=== PATIENT | male | born 1980 | race Two or more races ===

== ENCOUNTER 2019-07-08 05:23 | Emergency (ER) | payer SELFPAY ==
[~2019-07-08] VITALS: Ht 182.9 cm; Wt 81.6 kg
[2019-07-08] MEDS ORDERED: HYDROcodone-ACET 5/325MG TAB PO ONE (09:30)
[2019-07-08 12:34] LABS: Urine Bacteria NONE SEEN /hpf (None Seen); Urine Blood TRACE /uL (Negative); Urine Specific Gravity 1.025 (1.001-1.035); Urine WBC <1 /hpf (0 - 3)
[2019-07-08 13:44] VITALS: BP 121/72
== END 2019-07-08 13:50 | disposition home or self-care (01) ==
LOC: ER 05:23 → EDBD 05:23 → ER 13:50
DX: S02.40FA Zygomatic fracture, left side, initial encounter for closed fracture (principal); S02.2XXA Fracture of nasal bones, initial encounter for closed fracture; S82.242A Displaced spiral fracture of shaft of left tibia, initial encounter for closed fracture; S00.12XA Contusion of left eyelid and periocular area, initial encounter; R81 Glycosuria; F17.210 Nicotine dependence, cigarettes, uncomplicated; Y08.89XA Assault by other specified means, initial encounter; Y93.89 Activity, other specified; Y99.8 Other external cause status; Y92.89 Other specified places as the place of occurrence of the external cause
CPT/HCPCS: 29505; 70450; 70486; 73590; 81001; 82962

== ENCOUNTER 2019-11-26 10:12 | Inpatient (IN) | payer MEDICAID, OTHER ==
[~2019-11-26] VITALS: Ht 175.3 cm; Wt 84.9 kg
[2019-11-26] MEDS ORDERED: ONDANSETRON ODT 4 MG TAB PO ONE (10:45)
[2019-11-26] MEDS ORDERED: ACETAMINOPHEN 325 MG TAB PO ONE (11:15)
[2019-11-26] MEDS ORDERED: ASCORBIC ACID 500 MG TAB PO ONE (11:30)
[2019-11-26] MEDS ORDERED: ZINC SULFATE 220mg CAP or TAB PO ONE (11:30)
[2019-11-26] MEDS ORDERED: methylPREDNISolone SOD SUCC 125 MG/2 ML VL IV ONE (11:30)
[2019-11-26] MEDS ORDERED: ENOXAPARIN SOD 100 MG/1 ML SYRINGE SC ONE (11:30)
[2019-11-26] MEDS ORDERED: AZITHROMYCIN 500MG/ 250ML 250 ML IV ONE (11:30)
[2019-11-26] MEDS ORDERED: hydrOXYchloroQUINE SULFATE 200 MG TAB PO ONE (11:30)
[2019-11-26 13:17] LABS: Basophils # (auto) 0 10 ^3/uL (0-0.2); Basophils % (auto) 0.5 % (0.0-2.0); Eosinophils # (auto) 0 10 ^3/uL (0-0.8); Hematocrit 46.6 % (41.0-53.0); Hemoglobin 15.3 g/dL (13.5-17.5); Lymphocytes # (auto) 1.1 10 ^3/uL (0.4-5.4); Lymphocytes % (auto) 20.6 % (10.0-50.0); Mean Corpuscular Hgb Conc. 32.9 g/dL (32.0-36.0); Mean Corpuscular Volume 88.1 fL (80.0-100.0); Monocytes # (auto) 0.8 10 ^3/uL (0-1.3); Monocytes % (auto) 14.6 % (0.0-12.0); Neutrophils # (auto) 3.5 10 ^3/uL (1.6-8.6); Neutrophils % (auto) 64.3 % (37.0-80.0); Nucleated Red Blood Cells % 0.1 %; Platelet Count (auto) 175 10^3/uL (140-450); Red Blood Cells 5.29 10^6/uL (4.5-5.90); Red Cell Distribution Width 13.3 % (11.8-14.3); White Blood Cell 5.5 10^3/uL (4.4-10.8)
[2019-11-26 13:36] LABS: Albumin 2.9 g/dL (3.4-5.0); Calcium 8.3 mg/dL (8.5-10.1)
[2019-11-26 13:43] LABS: BUN/Creatinine Ratio 16.9; Bilirubin, Total 0.7 mg/dL (0.2-1.0); CRP High Sensitivity 8.77 mg/dL (< 0.3); Total Protein 7.6 g/dL (6.4-8.2)
[2019-11-26] MEDS ORDERED: SODIUM CHLORIDE 0.9% 1,000 ML IV SCH (14:25)
[2019-11-26] MEDS ORDERED: NITROGLYCERIN 0.4 MG SL TAB SL PRN ×2 (14:30→20:15)
[2019-11-26] MEDS ORDERED: MORPHINE SULF INJ 2 MG/ML SYRINGE 1ML IV PRN ×3 (14:30→20:15)
[2019-11-26] MEDS ORDERED: ACETAMINOPHEN 500 MG TAB PO PRN (14:30)
[2019-11-26] MEDS ORDERED: NAP500T PO (17:10)
[2019-11-26] MEDS ORDERED: IBUP200T76 PO (17:10)
[2019-11-26] MEDS ORDERED: DexAMETHasone SOD PHOS 4 MG/1ML SDV INJ IV ONE (20:15)
[2019-11-26] MEDS ORDERED: FUROSEMIDE 20 MG/2 ML VIAL IV ONE (20:15)
[2019-11-26] MEDS ORDERED: ONDANSETRON HCL 4 MG/2 ML VIAL IV PRN (20:15)
[2019-11-26] MEDS ORDERED: ACETAMINOPHEN 325 MG TAB PO PRN (20:15)
[2019-11-26] MEDS ORDERED: HYDROcodone-ACET 5/325MG TAB PO PRN (20:15)
[2019-11-26] MEDS ORDERED: ALUM & MAG HYDROX-SIMETH LIQ(MAALOX) 30 ML PO PRN (20:15)
[2019-11-26] MEDS ORDERED: DEXTROSE (50%) 50ML SYRG IV PRN (20:15)
[2019-11-26] MEDS ORDERED: DOCUSATE SOD 100 MG CAP PO PRN (20:15)
[2019-11-26 20:49] VITALS: BP 109/70
[2019-11-26 21:22] LABS: Cholesterol 165 mg/dL (< 200); Triglycerides 119 mg/dL (< 150)
[2019-11-26 21:26] LABS: HDL Cholesterol 31 mg/dL (40-59); LDL Cholesterol 114 mg/dL (< 100)
[2019-11-26] MEDS: DOXYCYCLINE 100MG/250ML 250 ML IV SCH (21:36)
[2019-11-26] MEDS ORDERED: InsuLIN REG 1unit/0.01ml Soln (100units/ml) SC SCH (22:00)
[2019-11-26] MEDS: ALBUTEROL SULF HFA 90MCG INH 200DOSE IN SCH (22:00)
[2019-11-26 22:12] VITALS: BP 123/75
[2019-11-26] MEDS: ACCU-CHEK COMFORT CURVE STRIP VI SCH (22:42)
[2019-11-27 00:39] VITALS: BP 123/75
[2019-11-27] MEDS ORDERED: PNEUMOCOCCAL VACC POLYS 25 MCG/0.5 ML VIAL IM ONE (02:15)
[2019-11-27 05:19] VITALS: BP 120/75
[2019-11-27] MEDS: FUROSEMIDE 20 MG/2 ML VIAL IV SCH ×2 (06:22→17:32)
[2019-11-27] MEDS: ACCU-CHEK COMFORT CURVE STRIP VI SCH ×2 (06:55→18:26)
[2019-11-27] MEDS ORDERED: InsuLIN REG 1unit/0.01ml Soln (100units/ml) SC SCH (07:00)
[2019-11-27] MEDS ORDERED: InsuLIN REG 1unit/0.01ml Soln (100units/ml) SC ONE (08:15)
[2019-11-27] MEDS ORDERED: INSULIN LANTUS (GLARGINE) 1 /0.01ml (100units/ml) SC ONE (08:15)
[2019-11-27 08:22] LABS: Basophils # (auto) 0 10 ^3/uL (0-0.2); Basophils % (auto) 0.2 % (0.0-2.0); Eosinophils # (auto) 0 10 ^3/uL (0-0.8); Hematocrit 47.4 % (41.0-53.0); Hemoglobin 15.5 g/dL (13.5-17.5); Lymphocytes # (auto) 0.8 10 ^3/uL (0.4-5.4); Lymphocytes % (auto) 19.3 % (10.0-50.0); Mean Corpuscular Hemoglobin 28.7 pg (28.0-32.0); Mean Corpuscular Hgb Conc. 32.7 g/dL (32.0-36.0); Mean Corpuscular Volume 87.6 fL (80.0-100.0); Monocytes # (auto) 0.4 10 ^3/uL (0-1.3); Monocytes % (auto) 10.8 % (0.0-12.0); Neutrophils # (auto) 2.9 10 ^3/uL (1.6-8.6); Neutrophils % (auto) 69.7 % (37.0-80.0); Nucleated Red Blood Cells % 0.1 %; Platelet Count (auto) 215 10^3/uL (140-450); Red Blood Cells 5.41 10^6/uL (4.5-5.90); Red Cell Distribution Width 13.3 % (11.8-14.3); White Blood Cell 4.2 10^3/uL (4.4-10.8)
[2019-11-27 08:37] LABS: INR 1.02 (0.9-1.15)
[2019-11-27 08:56] LABS: Albumin 2.8 g/dL (3.4-5.0); BUN/Creatinine Ratio 25.3; Calcium 7.9 mg/dL (8.5-10.1); Magnesium 2.5 mg/dL (1.6-2.6); Potassium 3.9 mmol/L (3.5-5.1)
[2019-11-27 08:59] LABS: Bilirubin, Total 0.5 mg/dL (0.2-1.0); Total Protein 7.7 g/dL (6.4-8.2)
[2019-11-27 09:00] VITALS: BP 116/75
[2019-11-27] MEDS: ALBUTEROL SULF HFA 90MCG INH 200DOSE IN SCH ×2 (09:25→15:12)
[2019-11-27 09:26] LABS: Phosphorus 3.6 mg/dL (2.5-4.90)
[2019-11-27 09:59] LABS: CRP High Sensitivity 8.87 mg/dL (< 0.3)
[2019-11-27] MEDS ORDERED: DexAMETHasone SOD PHOS 4 MG/1ML SDV INJ IV SCH (10:00)
[2019-11-27] MEDS: ZINC SULFATE 220mg CAP or TAB PO SCH (10:28)
[2019-11-27] MEDS: DexAMETHasone SOD PHOS 10MG/1ML VIAL INJ IV SCH (10:28)
[2019-11-27] MEDS: DOXYCYCLINE 100MG/250ML 250 ML IV SCH ×2 (10:29→22:00)
[2019-11-27] MEDS: CHOLECALCIFEROL (VITD3) 1,000UNIT=25mCg TAB PO SCH (10:29)
[2019-11-27] MEDS: ASCORBIC ACID 1,000 MG TAB PO SCH (10:29)
[2019-11-27] MEDS: ENOXAPARIN SOD 40 MG/0.4 ML SYRINGE SC SCH (10:29)
[2019-11-27] MEDS ORDERED: POTASSIUM EFFERVESENT TAB 25 MEQ PO ONE (12:00)
[2019-11-27 13:00] VITALS: BP 122/78
[2019-11-27] MEDS ORDERED: InsuLIN REG 1unit/0.01ml Soln (100units/ml) IV ONE (14:00)
[2019-11-27] MEDS ORDERED: DEXTROSE (50%) 50ML SYRG IV PRN (14:00)
[2019-11-27 17:00] VITALS: BP 118/76
[2019-11-27] MEDS: InsuLIN REG 1unit/0.01ml Soln (100units/ml) SC SCH (17:32)
[2019-11-27 22:00] VITALS: BP 119/71
[2019-11-27] MEDS: INSULIN LANTUS (GLARGINE) 1 /0.01ml (100units/ml) SC SCH (22:01)
[2019-11-28] MEDS: ACCU-CHEK COMFORT CURVE STRIP VI SCH ×4 (00:34→18:04)
[2019-11-28] MEDS: InsuLIN REG 1unit/0.01ml Soln (100units/ml) SC SCH ×4 (00:35→18:05)
[2019-11-28] MEDS: FUROSEMIDE 20 MG/2 ML VIAL IV SCH ×2 (06:03→18:08)
[2019-11-28 08:54] VITALS: BP 100/61
[2019-11-28] MEDS ORDERED: cefTRIAXone 1GM/50ML D5W 50 ML IV ONE (09:15)
[2019-11-28] MEDS: INSULIN LANTUS (GLARGINE) 1 /0.01ml (100units/ml) SC SCH (10:00)
[2019-11-28] MEDS: ALBUTEROL SULF HFA 90MCG INH 200DOSE IN SCH ×4 (10:13→22:34)
[2019-11-28] MEDS: POTASSIUM EFFERVESENT TAB 25 MEQ PO SCH (10:14)
[2019-11-28] MEDS: DOXYCYCLINE 100MG/250ML 250 ML IV SCH (10:15)
[2019-11-28] MEDS: ENOXAPARIN SOD 40 MG/0.4 ML SYRINGE SC SCH (10:16)
[2019-11-28] MEDS: ZINC SULFATE 220mg CAP or TAB PO SCH (10:16)
[2019-11-28] MEDS: CHOLECALCIFEROL (VITD3) 1,000UNIT=25mCg TAB PO SCH (10:16)
[2019-11-28] MEDS: ASCORBIC ACID 1,000 MG TAB PO SCH (10:16)
[2019-11-28] MEDS: DexAMETHasone SOD PHOS 10MG/1ML VIAL INJ IV SCH (10:17)
[2019-11-28 13:00] VITALS: BP 111/75
[2019-11-28 17:00] VITALS: BP 112/70
[2019-11-28] MEDS: cefTRIAXone 1GM/50ML D5W 50 ML IV SCH (21:24)
[2019-11-28 22:00] VITALS: BP 116/70
[2019-11-29] MEDS: INSULIN LANTUS (GLARGINE) 1 /0.01ml (100units/ml) SC SCH ×3 (00:01→23:37)
[2019-11-29] MEDS: InsuLIN REG 1unit/0.01ml Soln (100units/ml) SC SCH ×5 (00:02→23:38)
[2019-11-29] MEDS: DOXYCYCLINE 100MG/250ML 250 ML IV SCH ×3 (00:14→23:18)
[2019-11-29] MEDS: ENOXAPARIN SOD 40 MG/0.4 ML SYRINGE SC SCH ×3 (00:15→23:18)
[2019-11-29] MEDS: ACCU-CHEK COMFORT CURVE STRIP VI SCH ×5 (00:15→23:19)
[2019-11-29 05:00] VITALS: BP 108/70
[2019-11-29] MEDS: FUROSEMIDE 20 MG/2 ML VIAL IV SCH ×2 (06:10→18:25)
[2019-11-29 06:33] LABS: Potassium 3.4 mmol/L (3.5-5.1)
[2019-11-29 06:37] LABS: BUN/Creatinine Ratio 29.5; Calcium 8.6 mg/dL (8.5-10.1)
[2019-11-29 07:30] VITALS: BP 90/64
[2019-11-29] MEDS: ALBUTEROL SULF HFA 90MCG INH 200DOSE IN SCH ×2 (07:56→23:19)
[2019-11-29] MEDS: cefTRIAXone 1GM/50ML D5W 50 ML IV SCH ×2 (09:56→20:55)
[2019-11-29] MEDS: ZINC SULFATE 220mg CAP or TAB PO SCH (09:59)
[2019-11-29] MEDS: POTASSIUM EFFERVESENT TAB 25 MEQ PO SCH (09:59)
[2019-11-29] MEDS: ASCORBIC ACID 1,000 MG TAB PO SCH (10:00)
[2019-11-29] MEDS: CHOLECALCIFEROL (VITD3) 1,000UNIT=25mCg TAB PO SCH (10:01)
[2019-11-29] MEDS: DexAMETHasone SOD PHOS 10MG/1ML VIAL INJ IV SCH (10:03)
[2019-11-29 12:52] VITALS: BP 99/64
[2019-11-29 17:00] VITALS: BP 107/73
[2019-11-29 22:00] VITALS: BP 114/71
[2019-11-30 03:16] VITALS: BP 114/71
[2019-11-30 05:55] VITALS: BP 104/70
[2019-11-30] MEDS: ACCU-CHEK COMFORT CURVE STRIP VI SCH ×3 (05:58→17:25)
[2019-11-30] MEDS: FUROSEMIDE 20 MG/2 ML VIAL IV SCH ×2 (05:58→18:23)
[2019-11-30] MEDS: InsuLIN REG 1unit/0.01ml Soln (100units/ml) SC SCH ×3 (06:01→17:23)
[2019-11-30] MEDS: ALBUTEROL SULF HFA 90MCG INH 200DOSE IN SCH ×3 (07:57→22:10)
[2019-11-30 09:00] VITALS: BP 108/69
[2019-11-30] MEDS: cefTRIAXone 1GM/50ML D5W 50 ML IV SCH ×2 (09:12→23:12)
[2019-11-30] MEDS: CHOLECALCIFEROL (VITD3) 1,000UNIT=25mCg TAB PO SCH (09:13)
[2019-11-30] MEDS: DexAMETHasone SOD PHOS 10MG/1ML VIAL INJ IV SCH (09:13)
[2019-11-30] MEDS: ENOXAPARIN SOD 40 MG/0.4 ML SYRINGE SC SCH ×2 (09:13→23:13)
[2019-11-30] MEDS: ZINC SULFATE 220mg CAP or TAB PO SCH (09:14)
[2019-11-30] MEDS: ASCORBIC ACID 1,000 MG TAB PO SCH (09:14)
[2019-11-30] MEDS: POTASSIUM EFFERVESENT TAB 25 MEQ PO SCH (09:14)
[2019-11-30 09:32] LABS: Basophils # (auto) 0 10 ^3/uL (0-0.2); Basophils % (auto) 0.6 % (0.0-2.0); Eosinophils # (auto) 0.1 10 ^3/uL (0-0.8); Eosinophils % (auto) 0.7 % (0.0-7.0); Hematocrit 43.9 % (41.0-53.0); Hemoglobin 14.7 g/dL (13.5-17.5); Lymphocytes % (auto) 26.6 % (10.0-50.0); Mean Corpuscular Hemoglobin 28.9 pg (28.0-32.0); Mean Corpuscular Hgb Conc. 33.6 g/dL (32.0-36.0); Mean Corpuscular Volume 86.1 fL (80.0-100.0); Monocytes # (auto) 0.8 10 ^3/uL (0-1.3); Monocytes % (auto) 10.3 % (0.0-12.0); Neutrophils # (auto) 4.6 10 ^3/uL (1.6-8.6); Neutrophils % (auto) 61.8 % (37.0-80.0); Nucleated Red Blood Cells % 0.1 %; Platelet Count (auto) 326 10^3/uL (140-450); Red Cell Distribution Width 13.6 % (11.8-14.3); White Blood Cell 7.4 10^3/uL (4.4-10.8)
[2019-11-30 09:50] LABS: Albumin 2.4 g/dL (3.4-5.0); Calcium 8.5 mg/dL (8.5-10.1); Potassium 3.3 mmol/L (3.5-5.1)
[2019-11-30 09:55] LABS: BUN/Creatinine Ratio 27.7; Bilirubin, Total 0.4 mg/dL (0.2-1.0); Total Protein 6.9 g/dL (6.4-8.2)
[2019-11-30] MEDS: INSULIN LANTUS (GLARGINE) 1 /0.01ml (100units/ml) SC SCH ×2 (10:00→23:11)
[2019-11-30] MEDS: DOXYCYCLINE 100MG/250ML 250 ML IV SCH ×2 (10:55→23:58)
[2019-11-30 13:00] VITALS: BP 101/69
[2019-11-30] MEDS ORDERED: REMDESIVIR 200 MG in NS 210ml LOADING DOSE ADULT IV ONE ×2 (16:30→20:00)
[2019-11-30] MEDS ORDERED: POTASSIUM CHL 20 Meq TABLET PO ONE (16:45)
[2019-11-30 17:00] VITALS: BP 107/73
[2019-11-30 22:00] VITALS: BP 117/78
[2019-12-01] MEDS: ACCU-CHEK COMFORT CURVE STRIP VI SCH ×5 (00:04→23:18)
[2019-12-01] MEDS: InsuLIN REG 1unit/0.01ml Soln (100units/ml) SC SCH ×5 (00:10→23:23)
[2019-12-01 05:00] VITALS: BP 114/70
[2019-12-01] MEDS: FUROSEMIDE 20 MG/2 ML VIAL IV SCH ×2 (06:00→17:30)
[2019-12-01] MEDS: ALBUTEROL SULF HFA 90MCG INH 200DOSE IN SCH ×3 (07:09→20:58)
[2019-12-01] MEDS: cefTRIAXone 1GM/50ML D5W 50 ML IV SCH ×2 (09:08→21:13)
[2019-12-01 09:18] VITALS: BP 112/74
[2019-12-01] MEDS: DOXYCYCLINE 100MG/250ML 250 ML IV SCH (09:29)
[2019-12-01] MEDS: DexAMETHasone SOD PHOS 10MG/1ML VIAL INJ IV SCH (09:29)
[2019-12-01] MEDS: INSULIN LANTUS (GLARGINE) 1 /0.01ml (100units/ml) SC SCH ×2 (09:30→21:22)
[2019-12-01] MEDS: ZINC SULFATE 220mg CAP or TAB PO SCH (09:30)
[2019-12-01] MEDS: POTASSIUM EFFERVESENT TAB 25 MEQ PO SCH (09:30)
[2019-12-01] MEDS: ASCORBIC ACID 1,000 MG TAB PO SCH (09:30)
[2019-12-01] MEDS: CHOLECALCIFEROL (VITD3) 1,000UNIT=25mCg TAB PO SCH (09:30)
[2019-12-01] MEDS: ENOXAPARIN SOD 40 MG/0.4 ML SYRINGE SC SCH ×2 (09:31→21:13)
[2019-12-01 13:00] VITALS: BP 120/73
[2019-12-01 17:00] VITALS: BP 113/75
[2019-12-01] MEDS: REMDESIVIR 100mg in NS 230ml DAILYx4DAYS (NO VENT) IV SCH (17:56)
[2019-12-01 22:00] VITALS: BP 112/71
[2019-12-02 05:00] VITALS: BP 99/63
[2019-12-02] MEDS: InsuLIN REG 1unit/0.01ml Soln (100units/ml) SC SCH ×4 (06:00→23:36)
[2019-12-02] MEDS: ACCU-CHEK COMFORT CURVE STRIP VI SCH ×4 (06:46→23:35)
[2019-12-02] MEDS: FUROSEMIDE 20 MG/2 ML VIAL IV SCH ×2 (06:56→18:09)
[2019-12-02] MEDS: ALBUTEROL SULF HFA 90MCG INH 200DOSE IN SCH ×3 (07:15→22:18)
[2019-12-02 08:49] VITALS: BP 110/77
[2019-12-02] MEDS: DexAMETHasone SOD PHOS 10MG/1ML VIAL INJ IV SCH (10:16)
[2019-12-02] MEDS: cefTRIAXone 1GM/50ML D5W 50 ML IV SCH ×2 (10:16→21:33)
[2019-12-02] MEDS: ZINC SULFATE 220mg CAP or TAB PO SCH (10:16)
[2019-12-02] MEDS: POTASSIUM EFFERVESENT TAB 25 MEQ PO SCH (10:16)
[2019-12-02] MEDS: ASCORBIC ACID 1,000 MG TAB PO SCH (10:17)
[2019-12-02] MEDS: ENOXAPARIN SOD 40 MG/0.4 ML SYRINGE SC SCH ×2 (10:17→21:59)
[2019-12-02] MEDS: CHOLECALCIFEROL (VITD3) 1,000UNIT=25mCg TAB PO SCH (10:17)
[2019-12-02] MEDS: INSULIN LANTUS (GLARGINE) 1 /0.01ml (100units/ml) SC SCH ×2 (10:18→22:02)
[2019-12-02 13:02] VITALS: BP 101/64
[2019-12-02 17:18] VITALS: BP 112/67
[2019-12-02] MEDS: REMDESIVIR 100mg in NS 230ml DAILYx4DAYS (NO VENT) IV SCH (17:47)
[2019-12-02 22:00] VITALS: BP 121/76
[2019-12-03] VITALS (10 sets, daily range): BP systolic 107–132; BP diastolic 65–87
[2019-12-03] MEDS: ACCU-CHEK COMFORT CURVE STRIP VI SCH ×4 (05:51→23:55)
[2019-12-03] MEDS: FUROSEMIDE 20 MG/2 ML VIAL IV SCH ×2 (05:52→17:56)
[2019-12-03] MEDS: InsuLIN REG 1unit/0.01ml Soln (100units/ml) SC SCH ×4 (05:57→23:57)
[2019-12-03] MEDS: ALBUTEROL SULF HFA 90MCG INH 200DOSE IN SCH ×3 (06:32→22:00)
[2019-12-03 07:15] LABS: Potassium 3.9 mmol/L (3.5-5.1)
[2019-12-03 07:25] LABS: Albumin 2.3 g/dL (3.4-5.0); Bilirubin, Total 0.4 mg/dL (0.2-1.0); Calcium 8.4 mg/dL (8.5-10.1); Total Protein 6.6 g/dL (6.4-8.2)
[2019-12-03] MEDS: cefTRIAXone 1GM/50ML D5W 50 ML IV SCH ×2 (09:43→20:33)
[2019-12-03] MEDS: POTASSIUM EFFERVESENT TAB 25 MEQ PO SCH (09:44)
[2019-12-03] MEDS: ZINC SULFATE 220mg CAP or TAB PO SCH (09:44)
[2019-12-03] MEDS: CHOLECALCIFEROL (VITD3) 1,000UNIT=25mCg TAB PO SCH (09:44)
[2019-12-03] MEDS: ENOXAPARIN SOD 40 MG/0.4 ML SYRINGE SC SCH ×2 (09:44→22:05)
[2019-12-03] MEDS: ASCORBIC ACID 1,000 MG TAB PO SCH (09:45)
[2019-12-03] MEDS: DexAMETHasone SOD PHOS 10MG/1ML VIAL INJ IV SCH (09:45)
[2019-12-03] MEDS: INSULIN LANTUS (GLARGINE) 1 /0.01ml (100units/ml) SC SCH ×2 (10:14→22:04)
[2019-12-03] MEDS ORDERED: InsuLIN REG 1unit/0.01ml Soln (100units/ml) IV ONE (16:15)
[2019-12-03] MEDS: REMDESIVIR 100mg in NS 230ml DAILYx4DAYS (NO VENT) IV SCH (17:57)
[2019-12-04 05:00] VITALS: BP 104/60
[2019-12-04] MEDS: InsuLIN REG 1unit/0.01ml Soln (100units/ml) SC SCH ×4 (05:34→23:51)
[2019-12-04] MEDS: FUROSEMIDE 20 MG/2 ML VIAL IV SCH ×2 (05:35→17:47)
[2019-12-04] MEDS: ACCU-CHEK COMFORT CURVE STRIP VI SCH ×4 (05:36→23:57)
[2019-12-04] MEDS: ALBUTEROL SULF HFA 90MCG INH 200DOSE IN SCH ×3 (06:18→21:20)
[2019-12-04 09:00] VITALS: BP 98/65
[2019-12-04] MEDS: DexAMETHasone SOD PHOS 10MG/1ML VIAL INJ IV SCH (10:03)
[2019-12-04] MEDS: ZINC SULFATE 220mg CAP or TAB PO SCH (10:03)
[2019-12-04] MEDS: cefTRIAXone 1GM/50ML D5W 50 ML IV SCH ×2 (10:03→21:09)
[2019-12-04] MEDS: ENOXAPARIN SOD 40 MG/0.4 ML SYRINGE SC SCH ×2 (10:04→21:10)
[2019-12-04] MEDS: CHOLECALCIFEROL (VITD3) 1,000UNIT=25mCg TAB PO SCH (10:04)
[2019-12-04] MEDS: POTASSIUM EFFERVESENT TAB 25 MEQ PO SCH (10:04)
[2019-12-04] MEDS: ASCORBIC ACID 1,000 MG TAB PO SCH (10:04)
[2019-12-04] MEDS: INSULIN LANTUS (GLARGINE) 1 /0.01ml (100units/ml) SC SCH ×2 (10:40→21:31)
[2019-12-04 12:00] VITALS: BP 103/59
[2019-12-04 16:52] VITALS: BP 110/65
[2019-12-04] MEDS: REMDESIVIR 100mg in NS 230ml DAILYx4DAYS (NO VENT) IV SCH (17:16)
[2019-12-04 21:52] VITALS: BP 119/65
[2019-12-05 05:24] VITALS: BP 104/70
[2019-12-05] MEDS: FUROSEMIDE 20 MG/2 ML VIAL IV SCH ×2 (06:00→18:29)
[2019-12-05] MEDS: ACCU-CHEK COMFORT CURVE STRIP VI SCH ×4 (06:19→23:52)
[2019-12-05] MEDS: InsuLIN REG 1unit/0.01ml Soln (100units/ml) SC SCH ×3 (06:29→18:33)
[2019-12-05] MEDS: ALBUTEROL SULF HFA 90MCG INH 200DOSE IN SCH ×3 (06:50→22:11)
[2019-12-05 09:00] VITALS: BP 113/66
[2019-12-05] MEDS: DexAMETHasone SOD PHOS 10MG/1ML VIAL INJ IV SCH (10:00)
[2019-12-05] MEDS: cefTRIAXone 1GM/50ML D5W 50 ML IV SCH ×2 (11:10→20:52)
[2019-12-05] MEDS: POTASSIUM EFFERVESENT TAB 25 MEQ PO SCH (11:10)
[2019-12-05] MEDS: ASCORBIC ACID 1,000 MG TAB PO SCH (11:11)
[2019-12-05] MEDS: ENOXAPARIN SOD 40 MG/0.4 ML SYRINGE SC SCH ×2 (11:11→20:52)
[2019-12-05] MEDS: ZINC SULFATE 220mg CAP or TAB PO SCH (11:11)
[2019-12-05] MEDS: CHOLECALCIFEROL (VITD3) 1,000UNIT=25mCg TAB PO SCH (11:11)
[2019-12-05] MEDS: INSULIN LANTUS (GLARGINE) 1 /0.01ml (100units/ml) SC SCH ×2 (11:14→21:27)
[2019-12-05 12:46] VITALS: BP 121/84
[2019-12-05 17:02] VITALS: BP 99/62
[2019-12-05 20:19] VITALS: BP 99/62
[2019-12-05 23:18] VITALS: BP 99/59
[2019-12-06] MEDS: InsuLIN REG 1unit/0.01ml Soln (100units/ml) SC SCH ×4 (00:15→18:06)
[2019-12-06] MEDS: FUROSEMIDE 20 MG/2 ML VIAL IV SCH ×2 (06:00→18:01)
[2019-12-06] MEDS: ACCU-CHEK COMFORT CURVE STRIP VI SCH ×3 (06:10→18:01)
[2019-12-06] MEDS: ALBUTEROL SULF HFA 90MCG INH 200DOSE IN SCH ×3 (07:39→23:49)
[2019-12-06 08:00] VITALS: BP 99/60
[2019-12-06 08:22] VITALS: BP 101/67
[2019-12-06] MEDS: cefTRIAXone 1GM/50ML D5W 50 ML IV SCH ×2 (08:43→21:38)
[2019-12-06] MEDS: POTASSIUM EFFERVESENT TAB 25 MEQ PO SCH (08:44)
[2019-12-06] MEDS: ASCORBIC ACID 1,000 MG TAB PO SCH (08:44)
[2019-12-06] MEDS: ZINC SULFATE 220mg CAP or TAB PO SCH (08:44)
[2019-12-06] MEDS: CHOLECALCIFEROL (VITD3) 1,000UNIT=25mCg TAB PO SCH (08:44)
[2019-12-06] MEDS: INSULIN LANTUS (GLARGINE) 1 /0.01ml (100units/ml) SC SCH ×2 (08:45→21:58)
[2019-12-06] MEDS: ENOXAPARIN SOD 40 MG/0.4 ML SYRINGE SC SCH ×2 (08:45→21:59)
[2019-12-06] MEDS: DexAMETHasone SOD PHOS 10MG/1ML VIAL INJ IV SCH (09:52)
[2019-12-06 11:43] LABS: Basophils # (auto) 0.2 10 ^3/uL (0-0.2); Basophils % (auto) 2.4 % (0.0-2.0); Eosinophils # (auto) 0.4 10 ^3/uL (0-0.8); Eosinophils % (auto) 4.4 % (0.0-7.0); Hematocrit 44.2 % (41.0-53.0); Hemoglobin 14.4 g/dL (13.5-17.5); Lymphocytes # (auto) 1.2 10 ^3/uL (0.4-5.4); Lymphocytes % (auto) 13.6 % (10.0-50.0); Mean Corpuscular Hemoglobin 28.8 pg (28.0-32.0); Mean Corpuscular Hgb Conc. 32.6 g/dL (32.0-36.0); Mean Corpuscular Volume 88.4 fL (80.0-100.0); Monocytes # (auto) 0.6 10 ^3/uL (0-1.3); Monocytes % (auto) 7.2 % (0.0-12.0); Neutrophils # (auto) 6.1 10 ^3/uL (1.6-8.6); Neutrophils % (auto) 72.4 % (37.0-80.0); Nucleated Red Blood Cells % 0.1 %; Platelet Count (auto) 403 10^3/uL (140-450); Red Cell Distribution Width 13.8 % (11.8-14.3); White Blood Cell 8.4 10^3/uL (4.4-10.8)
[2019-12-06 11:57] LABS: Albumin 2.3 g/dL (3.4-5.0); Calcium 8.5 mg/dL (8.5-10.1); Potassium 4.6 mmol/L (3.5-5.1)
[2019-12-06 12:00] LABS: BUN/Creatinine Ratio 22.9; Bilirubin, Total 0.4 mg/dL (0.2-1.0); Total Protein 6.3 g/dL (6.4-8.2)
[2019-12-06 12:30] VITALS: BP 101/66
[2019-12-06 17:00] VITALS: BP 101/59
[2019-12-06] MEDS: ACETAMINOPHEN 325 MG TAB PO PRN (21:38)
[2019-12-06 22:00] VITALS: BP 112/67
[2019-12-07] MEDS: ACCU-CHEK COMFORT CURVE STRIP VI SCH ×4 (00:27→18:26)
[2019-12-07] MEDS: InsuLIN REG 1unit/0.01ml Soln (100units/ml) SC SCH ×4 (00:33→18:28)
[2019-12-07 04:51] VITALS: BP 104/64
[2019-12-07] MEDS: FUROSEMIDE 20 MG/2 ML VIAL IV SCH ×2 (05:49→18:27)
[2019-12-07] MEDS: ALBUTEROL SULF HFA 90MCG INH 200DOSE IN SCH ×3 (06:35→21:03)
[2019-12-07 08:00] VITALS: BP 105/65
[2019-12-07] MEDS: INSULIN LANTUS (GLARGINE) 1 /0.01ml (100units/ml) SC SCH ×2 (10:00→21:59)
[2019-12-07] MEDS: cefTRIAXone 1GM/50ML D5W 50 ML IV SCH ×2 (10:12→21:24)
[2019-12-07] MEDS: CHOLECALCIFEROL (VITD3) 1,000UNIT=25mCg TAB PO SCH (10:12)
[2019-12-07] MEDS: ENOXAPARIN SOD 40 MG/0.4 ML SYRINGE SC SCH ×2 (10:13→21:24)
[2019-12-07] MEDS: ASCORBIC ACID 1,000 MG TAB PO SCH (10:13)
[2019-12-07] MEDS: POTASSIUM EFFERVESENT TAB 25 MEQ PO SCH (10:13)
[2019-12-07] MEDS: ZINC SULFATE 220mg CAP or TAB PO SCH (10:13)
[2019-12-07 12:00] VITALS: BP 108/55
[2019-12-07 17:00] VITALS: BP 105/56
[2019-12-07] MEDS: ACETAMINOPHEN 325 MG TAB PO PRN (22:05)
[2019-12-08] MEDS: InsuLIN REG 1unit/0.01ml Soln (100units/ml) SC SCH ×5 (00:47→23:30)
[2019-12-08 05:00] VITALS: BP 94/52
[2019-12-08] MEDS: ACCU-CHEK COMFORT CURVE STRIP VI SCH ×5 (05:26→23:26)
[2019-12-08] MEDS: FUROSEMIDE 20 MG/2 ML VIAL IV SCH ×2 (05:27→17:56)
[2019-12-08] MEDS: ALBUTEROL SULF HFA 90MCG INH 200DOSE IN SCH ×3 (06:35→21:56)
[2019-12-08 08:52] VITALS: BP 98/54
[2019-12-08] MEDS: cefTRIAXone 1GM/50ML D5W 50 ML IV SCH ×2 (09:14→21:46)
[2019-12-08] MEDS: POTASSIUM EFFERVESENT TAB 25 MEQ PO SCH (09:14)
[2019-12-08] MEDS: ASCORBIC ACID 1,000 MG TAB PO SCH (09:14)
[2019-12-08] MEDS: CHOLECALCIFEROL (VITD3) 1,000UNIT=25mCg TAB PO SCH (09:14)
[2019-12-08] MEDS: ENOXAPARIN SOD 40 MG/0.4 ML SYRINGE SC SCH ×2 (09:14→21:46)
[2019-12-08] MEDS: ZINC SULFATE 220mg CAP or TAB PO SCH (09:15)
[2019-12-08] MEDS: INSULIN LANTUS (GLARGINE) 1 /0.01ml (100units/ml) SC SCH ×2 (10:00→23:29)
[2019-12-08 13:00] VITALS: BP 103/60
[2019-12-08 17:00] VITALS: BP 103/61
[2019-12-08 19:47] VITALS: BP 103/61
[2019-12-09] VITALS (8 sets, daily range): BP systolic 94–114; BP diastolic 57–75
[2019-12-09] MEDS: InsuLIN REG 1unit/0.01ml Soln (100units/ml) SC SCH ×3 (06:00→18:01)
[2019-12-09] MEDS: FUROSEMIDE 20 MG/2 ML VIAL IV SCH ×2 (06:00→17:52)
[2019-12-09] MEDS: ACCU-CHEK COMFORT CURVE STRIP VI SCH ×3 (06:32→18:00)
[2019-12-09 06:42] LABS: Basophils # (auto) 0.1 10 ^3/uL (0-0.2); Eosinophils # (auto) 0.3 10 ^3/uL (0-0.8); Eosinophils % (auto) 2.9 % (0.0-7.0); Hematocrit 43.2 % (41.0-53.0); Hemoglobin 14.2 g/dL (13.5-17.5); Lymphocytes # (auto) 2.2 10 ^3/uL (0.4-5.4); Lymphocytes % (auto) 24.9 % (10.0-50.0); Monocytes % (auto) 10.9 % (0.0-12.0); Neutrophils # (auto) 5.3 10 ^3/uL (1.6-8.6); Neutrophils % (auto) 60.3 % (37.0-80.0); Nucleated Red Blood Cells % 0.1 %; Platelet Count (auto) 415 10^3/uL (140-450); Red Blood Cells 4.91 10^6/uL (4.5-5.90); Red Cell Distribution Width 13.8 % (11.8-14.3); White Blood Cell 8.8 10^3/uL (4.4-10.8)
[2019-12-09 06:45] LABS: Albumin 2.4 g/dL (3.4-5.0); BUN/Creatinine Ratio 31.5; Calcium 8.4 mg/dL (8.5-10.1)
[2019-12-09 06:47] LABS: Bilirubin, Total 0.4 mg/dL (0.2-1.0); Total Protein 6.3 g/dL (6.4-8.2)
[2019-12-09] MEDS: INSULIN LANTUS (GLARGINE) 1 /0.01ml (100units/ml) SC SCH (10:00)
[2019-12-09] MEDS: CHOLECALCIFEROL (VITD3) 1,000UNIT=25mCg TAB PO SCH (10:08)
[2019-12-09] MEDS: ASCORBIC ACID 1,000 MG TAB PO SCH (10:08)
[2019-12-09] MEDS: ENOXAPARIN SOD 40 MG/0.4 ML SYRINGE SC SCH ×2 (10:08→21:47)
[2019-12-09] MEDS: POTASSIUM EFFERVESENT TAB 25 MEQ PO SCH (10:08)
[2019-12-09] MEDS: cefTRIAXone 1GM/50ML D5W 50 ML IV SCH ×2 (10:08→21:47)
[2019-12-09] MEDS: ALBUTEROL SULF HFA 90MCG INH 200DOSE IN SCH ×3 (10:12→22:08)
[2019-12-09] MEDS: ZINC SULFATE 220mg CAP or TAB PO SCH (11:03)
[2019-12-09] MEDS ORDERED: DOXYCYCLINE 100 MG TAB/CAP PO ONE (12:15)
[2019-12-09] MEDS: DOXYCYCLINE 100 MG TAB/CAP PO SCH (21:48)
[2019-12-10] VITALS (7 sets, daily range): BP systolic 100–113; BP diastolic 61–68
[2019-12-10] MEDS: INSULIN LANTUS (GLARGINE) 1 /0.01ml (100units/ml) SC SCH ×2 (00:56→12:14)
[2019-12-10] MEDS: InsuLIN REG 1unit/0.01ml Soln (100units/ml) SC SCH ×4 (00:57→18:01)
[2019-12-10] MEDS: ACCU-CHEK COMFORT CURVE STRIP VI SCH ×4 (05:36→17:56)
[2019-12-10] MEDS: FUROSEMIDE 20 MG/2 ML VIAL IV SCH ×2 (06:38→18:07)
[2019-12-10] MEDS: ALBUTEROL SULF HFA 90MCG INH 200DOSE IN SCH ×2 (06:53→14:24)
[2019-12-10] MEDS: ASCORBIC ACID 1,000 MG TAB PO SCH (10:13)
[2019-12-10] MEDS: CHOLECALCIFEROL (VITD3) 1,000UNIT=25mCg TAB PO SCH (10:13)
[2019-12-10] MEDS: DOXYCYCLINE 100 MG TAB/CAP PO SCH (10:13)
[2019-12-10] MEDS: ZINC SULFATE 220mg CAP or TAB PO SCH (10:13)
[2019-12-10] MEDS: ENOXAPARIN SOD 40 MG/0.4 ML SYRINGE SC SCH (10:13)
[2019-12-10] MEDS: cefTRIAXone 1GM/50ML D5W 50 ML IV SCH (10:14)
[2019-12-10] MEDS: POTASSIUM EFFERVESENT TAB 25 MEQ PO SCH (10:14)
[2019-12-10] MEDS ORDERED: CHOL20007 PO (15:55)
[2019-12-10] MEDS ORDERED: FURO20TA3 PO (15:56)
[2019-12-11] MEDS ORDERED: cefTRIAXone 1GM/50ML D5W 50 ML IV SCH (10:00)
== END 2019-12-10 22:18 | disposition home or self-care (01) | DRG 720 ==
LOC: ER 10:12 → TELE 10:13 → TELE-E-ADS 22:12
PROVIDERS: ADMIT Hospitalist; ATTEND Internal Medicine Nephrology
PROC: XW033E5 Introduction of Remdesivir Anti-infective into Peripheral Vein, Percutaneous Approach, New Technology Group 5 (ICD-10-PCS; 2019-11-30)
PROC: 30233K1 Transfusion of Nonautologous Frozen Plasma into Peripheral Vein, Percutaneous Approach (ICD-10-PCS; principal; 2019-12-03)
DX: A41.89 Other specified sepsis (principal); U07.1 COVID-19; J96.01 Acute respiratory failure with hypoxia; J12.89 Other viral pneumonia; E44.0 Moderate protein-calorie malnutrition; R65.20 Severe sepsis without septic shock; E87.1 Hypo-osmolality and hyponatremia; K76.0 Fatty (change of) liver, not elsewhere classified; E11.21 Type 2 diabetes mellitus with diabetic nephropathy; E11.65 Type 2 diabetes mellitus with hyperglycemia; E11.40 Type 2 diabetes mellitus with diabetic neuropathy, unspecified; E78.5 Hyperlipidemia, unspecified; I10 Essential (primary) hypertension; M12.50 Traumatic arthropathy, unspecified site; S02.2XXA Fracture of nasal bones, initial encounter for closed fracture; S02.40EA Zygomatic fracture, right side, initial encounter for closed fracture; S82.892A Other fracture of left lower leg, initial encounter for closed fracture; R74.0 Nonspecific elevation of levels of transaminase and lactic acid dehydrogenase [LDH]; Z83.3 Family history of diabetes mellitus; Y93.89 Activity, other specified; Y92.89 Other specified places as the place of occurrence of the external cause; Y99.8 Other external cause status
CPT/HCPCS: 36415; 71045; 80048; 80053; 80061; 82728; 82962; 83036; 83605; 83615; 83735; 84100; 84443; 84484; 85025; 85379; 85610; 85652; 85730; 86141; 86850; 86900; 86901; 87040; 87070; 87804; 87880; 93005; 94640; G0378; J0696; J1100; J1815; J2405; J3490; Q0162

== ENCOUNTER 2021-06-08 12:31 | Emergency (ER) | payer OTHER ==
[~2021-06-08] VITALS: Ht 175.3 cm; Wt 86.6 kg
[~2021-06-08 12:31] MED LIST: CHOL20007 PO
[2021-06-08 13:37] LABS: Urine Bacteria NONE SEEN /hpf (None Seen); Urine Blood TRACE /uL (Negative); Urine WBC 1 /hpf (0 - 3)
[2021-06-08 14:11] LABS: Calcium 8.7 mg/dL (8.5-10.1); Potassium 4.7 mmol/L (3.5-5.1)
[2021-06-08 14:19] LABS: BUN/Creatinine Ratio 14.5; Bilirubin, Total 0.7 mg/dL (0.2-1.0); Total Protein 7.6 g/dL (6.4-8.2)
[2021-06-08 14:24] LABS: Basophils # (auto) 0.2 10 ^3/uL (0-0.2); Eosinophils # (auto) 0.2 10 ^3/uL (0-0.8); Hematocrit 46.9 % (41.0-53.0); Hemoglobin 15.6 g/dL (13.5-17.5); Lymphocytes # (auto) 1.8 10 ^3/uL (0.4-5.4); Lymphocytes % (auto) 28.5 % (10.0-50.0); Mean Corpuscular Hemoglobin 30.5 pg (28.0-32.0); Mean Corpuscular Hgb Conc. 33.3 g/dL (32.0-36.0); Mean Corpuscular Volume 91.4 fL (80.0-100.0); Monocytes # (auto) 0.5 10 ^3/uL (0-1.3); Monocytes % (auto) 7.8 % (0.0-12.0); Neutrophils # (auto) 3.6 10 ^3/uL (1.6-8.6); Neutrophils % (auto) 56.9 % (37.0-80.0); Nucleated Red Blood Cells % 0.1 %; Red Blood Cells 5.13 10^6/uL (4.5-5.90); Red Cell Distribution Width 13.3 % (11.8-14.3); White Blood Cell 6.4 10^3/uL (4.4-10.8)
[2021-06-08 14:51] LABS: Basophils % (auto) 2.2 % (0.0-2.0); Eosinophils % (auto) 4.6 % (0.0-7.0)
[2021-06-08] MEDS ORDERED: METR500T PO (15:19)
[2021-06-08] MEDS ORDERED: CEPH-509 PO (15:19)
[2021-06-08 15:24] VITALS: BP 131/81
[2021-06-08] MEDS ORDERED: SODIUM CHLORIDE 0.9% 1,000 ML IV ONE (15:30)
[2021-06-08] MEDS ORDERED: cefTRIAXone 1GM/50ML D5W 50 ML IV ONE (15:30)
== END 2021-06-08 15:55 | disposition home or self-care (01) ==
LOC: ER 12:34
DX: K52.9 Noninfective gastroenteritis and colitis, unspecified (principal); E11.65 Type 2 diabetes mellitus with hyperglycemia; F17.210 Nicotine dependence, cigarettes, uncomplicated
CPT/HCPCS: 36415; 74176; 80053; 81001; 84484; 85025

== ENCOUNTER 2021-09-20 17:31 | Emergency (ER) | payer OTHER ==
[~2021-09-20] VITALS: Ht 175.3 cm; Wt 86.6 kg
[~2021-09-20 17:31] MED LIST changes: +CEPH-509 PO; +METR500T PO
[2021-09-20 17:41] VITALS: BP 121/71
[2021-09-20] MEDS ORDERED: DIPH25CA66 PO (20:23)
[2021-09-20] MEDS ORDERED: METH4PAK PO (20:23)
[2021-09-20] MEDS ORDERED: diphenhdrAMINE HCL 50 MG/1 ML VL IM ONE (20:30)
[2021-09-20] MEDS ORDERED: methylPREDNISolone SOD SUCC 125 MG/2 ML VL IM ONE (20:30)
== END 2021-09-20 20:13 | disposition home or self-care (01) ==
LOC: ER 17:31
DX: S60.562A Insect bite (nonvenomous) of left hand, initial encounter (principal); S60.561A Insect bite (nonvenomous) of right hand, initial encounter; S80.862A Insect bite (nonvenomous), left lower leg, initial encounter; S80.861A Insect bite (nonvenomous), right lower leg, initial encounter; S30.861A Insect bite (nonvenomous) of abdominal wall, initial encounter; S30.860A Insect bite (nonvenomous) of lower back and pelvis, initial encounter; L25.9 Unspecified contact dermatitis, unspecified cause; E11.9 Type 2 diabetes mellitus without complications; F17.210 Nicotine dependence, cigarettes, uncomplicated; Z79.899 Other long term (current) drug therapy; W57.XXXA Bitten or stung by nonvenomous insect and other nonvenomous arthropods, initial encounter; Y93.89 Activity, other specified; Y92.89 Other specified places as the place of occurrence of the external cause; Y99.8 Other external cause status
CPT/HCPCS: 96372; 99284; J1200; J2930

== ENCOUNTER → 2021-11-13 15:38 | Emergency (ER) | payer OTHER ==
[~2021-11-13] VITALS: Ht 175.3 cm; Wt 86.2 kg
[~2021-11-13 15:38] MED LIST changes: +DIPH25CA66 PO; +METH4PAK PO
[2021-11-13 16:10] VITALS: BP 133/90
[2021-11-13 18:11] LABS: Basophils # (auto) 0.1 10 ^3/uL (0-0.2); Basophils % (auto) 1.5 % (0.0-2.0); Eosinophils # (auto) 0.1 10 ^3/uL (0-0.8); Eosinophils % (auto) 1.8 % (0.0-7.0); Hematocrit 50.8 % (41.0-53.0); Hemoglobin 16.4 g/dL (13.5-17.5); Lymphocytes # (auto) 2.1 10 ^3/uL (0.4-5.4); Lymphocytes % (auto) 36.3 % (10.0-50.0); Mean Corpuscular Hemoglobin 29.2 pg (28.0-32.0); Mean Corpuscular Hgb Conc. 32.3 g/dL (32.0-36.0); Mean Corpuscular Volume 90.3 fL (80.0-100.0); Monocytes # (auto) 0.5 10 ^3/uL (0-1.3); Monocytes % (auto) 9.6 % (0.0-12.0); Neutrophils # (auto) 2.9 10 ^3/uL (1.6-8.6); Neutrophils % (auto) 50.8 % (37.0-80.0); Nucleated Red Blood Cells % 0.1 %; Red Blood Cells 5.62 10^6/uL (4.5-5.90); Red Cell Distribution Width 12.8 % (11.8-14.3); White Blood Cell 5.7 10^3/uL (4.4-10.8)
[2021-11-13 18:16] LABS: Potassium 4.4 mmol/L (3.5-5.1)
[2021-11-13 18:24] LABS: BUN/Creatinine Ratio 9.7; Bilirubin, Total 1.8 mg/dL (0.2-1.0); Calcium 8.8 mg/dL (8.5-10.1); Total Protein 7.8 g/dL (6.4-8.2)
[2021-11-13 20:08] LABS: Urine Bacteria NONE SEEN /hpf (None Seen); Urine Blood TRACE /uL (Negative); Urine Specific Gravity 1.035 (1.001-1.035); Urine WBC 1 /hpf (0 - 3)
== END | disposition home or self-care (01) ==
LOC: ER 15:38
DX: G89.29 Other chronic pain (principal); R10.11 Right upper quadrant pain; E11.9 Type 2 diabetes mellitus without complications; F17.210 Nicotine dependence, cigarettes, uncomplicated; Z79.899 Other long term (current) drug therapy
CPT/HCPCS: 36415; 71045; 74176; 76705; 80053; 81001; 83690; 84484; 85025; 93005